=== PATIENT | female | born 1965 | race Caucasian/White ===

== ENCOUNTER 2016-10-27 11:55 | Emergency (ER) | payer BC ==
[2016-10-27 12:45] LABS: CHLORIDE,CL 102 mmol/L (101-111); SODIUM,NA 137 mmol/L (135-145)
--- NOTE | 2016-10-27 12:58 | EDM.PDOC ---
{null, ED HPI GENERAL MEDICAL PROBLEM - General Chief Complaint: Chest Pain Stated Complaint: [id number] CHEST PAIN Time Seen by Provider: 10/27/16 12:53 Source of Information: Reports: Patient History Limitations: Reports: No Limitations - History of Present Illness INITIAL COMMENTS - FREE TEXT/NARRATIVE: This 51 yo female patient reports to the ED with chest pain. The patient reports her chest pain started this morning at about 0715 and has been constant since that time. The patient reports she was reaching into the closet when her pain started. The patient reports her pain feels like a sharp shooting pain through to her left shoulder. The patient reports her pain increases with taking a deep breath. The patient has no history of similar symptoms. The patient reports she took Tylenol and ibuprofen this morning with some symptom relief. Onset: Today Onset Date: 10/27/16 Onset Time: 07:15 Duration: Constant, Improving Location: Reports: Chest (left side of chest into left shoulder) Quality: Reports: Ache, Sharp Severity: Moderate Improves with: Reports: Rest Worsens with: Reports: Movement Associated Symptoms: Reports: Chest Pain Treatments [employer]: Reports: Acetaminophen, NSAIDS - Related Data Allergies Allergy/AdvReac Type Severity Reaction Status Date / Time doxycycline Allergy Facial Verified 04/11/15 13:10 Swelling Sulfa (Sulfonamide Allergy Rash Verified 04/11/15 13:10 Antibiotics) Home Meds: Home Meds Ascorbic Acid [Vitamin C] 04/11/15 [History] Aspirin [Halfprin] 04/11/15 [History] Calcium Carb & Citrate/Vit D3 [Citracal + D ER] 04/11/15 [History] Glucosamine [Glucosamine Sulfate] 04/11/15 [History] Vitamin E 04/11/15 [History] Past Medical History Other Musculoskeletal History: Tested for MS about 3 years ago, with no diagnosis made. Other Neuro History: Question of MS a few years ago Social & Family History - Tobacco Use Smoking Status *Q: Never Smoker Second Hand Smoke Exposure: No - Alcohol Use Days Per Week of Alcohol Use: 0 - Recreational Drug Use Recreational Drug Use: No - Living Situation & Occupation Living situation: Reports: , with Spouse ED ROS GENERAL - Review of Systems Review Of Systems: ROS reveals no pertinent complaints other than HPI. ED EXAM, GENERAL - Physical Exam Exam: See Below Exam Limited By: No Limitations General Appearance: Alert, WD/WN, Moderate Distress Eye Exam: Bilateral Eye: EOMI, Normal Inspection, PERRL Ears: Normal External Exam, Normal Canal, Hearing Grossly Normal, Normal TMs Nose: Normal Inspection, Normal Mucosa, No Blood Throat/Mouth: Normal Inspection, Normal Lips, Normal Teeth, Normal Gums, Normal Oropharynx, Normal Voice, No Airway Compromise Head: Atraumatic Neck: Normal Inspection, Supple, Non-Tender, Full Range of Motion Respiratory/Chest: No Respiratory Distress, Lungs Clear, Normal Breath Sounds, No Accessory Muscle Use, Other (left chest wall tenderness) Cardiovascular: Normal Peripheral Pulses, Regular Rate, Rhythm, No Edema, No Gallop, No JVD, No Murmur, No Rub GI/Abdominal: Normal Bowel Sounds, Soft, Non-Tender, No Organomegaly, No Distention, No Abnormal Bruit, No Mass (Female) Exam: Deferred Rectal (Female) Exam: Deferred Back Exam: Normal Inspection, Full Range of Motion, NT Extremities: Normal Inspection, Normal Range of Motion, Non-Tender, Normal Capillary Refill, No Pedal Edema Neurological: Alert, Oriented, CN II-XII Intact, Normal Cognition, Normal Gait, Normal Reflexes, No Motor/Sensory Deficits Psychiatric: Normal Affect, Normal Mood Skin Exam: Warm, Dry, Intact, Normal Color, No Rash Lymphatic: No Adenopathy Course - Orders/Labs/Meds Orders: Active Orders 24 hr Category Date Time Status EKG Documentation Completion [RC] URGENT Care 10/27/16 12:08 Active Chest 1V Frontal [CR] Urgent Exams 10/27/16 12:08 Taken Labs: Laboratory Tests 10/27/16 10/27/16 Range/Units 12:15 12:15 WBC 5.8 (5.0-10.0) 10^3/uL RBC 4.77 (4.2-5.4) 10^6/uL Hgb 14.0 (12.0-16.0) g/dL Hct 42.4 (37.0-47.0) % MCV 88.9 (80-100) fL MCH 29.4 (27.0-34.0) pg MCHC 33.0 (33.0-35.0) g/dL Plt Count 319 (150-450) 10^3/uL Neut % (Auto) 56.2 (42.2-75.2) % Lymph % (Auto) 35.1 (20.5-50.1) % [place] % (Auto) 7.4 (2-8) % Eos % (Auto) 1.0 (1.0-3.0) % Baso % (Auto) 0.3 (0.0-1.0) % Sodium 137 (135-145) mmol/L Potassium 3.9 (3.6-5.0) mmol/L Chloride 102 (101-111) mmol/L Carbon Dioxide 28.0 (21.0-31.0) mmol/L Anion Gap 10.9 BUN 9 (7-18) mg/dL Creatinine 0.8 (0.6-1.3) mg/dL Est Cr Clr Drug Dosing TNP Estimated GFR (MDRD) > 60 BUN/Creatinine Ratio 11.25 Glucose 91 (74-105) mg/dL Calcium 9.3 (8.4-10.2) mg/dl Total Bilirubin 0.4 (0.2-1.0) mg/dL AST 21 (10-42) IU/L ALT 17 (10-60) IU/L Alkaline Phosphatase 66 (42-121) IU/L Troponin I < 0.02 (0.00-0.02) ng/ml Total Protein 7.8 (6.7-8.2) g/dl Albumin 4.7 (3.2-5.5) g/dl Globulin 3.1 Albumin/Globulin Ratio 1.52 Departure - Departure Time of Disposition: 12:58 Disposition: Home, Self-Care 01 Condition: fair Clinical Impression: Chest wall muscle strain Qualifiers: Encounter type: initial encounter Qualified Code(s): S29.011A - Strain of muscle and tendon of front wall of thorax, initial encounter Instructions: Nonspecific Chest Pain, [id number] Forms: ED Department Discharge Care Plan Goals: The patient was advised of the examination, lab, EKG and X-ray results during the visit. The patient was encouraged to continue to monitor her symptoms. The patient may take Tylenol or ibuprofen as directed for temporary symptom relief. If the patient has any additional symptoms or concerns, the patient should follow-up with her primary care facility or return to the emergency department. - My Orders Last 24 Hours: My Active Orders 10/27/16 12:08 EKG Documentation Completion [RC] URGENT Chest 1V Frontal [CR] Urgent - Assessment/Plan Last 24 Hours: My Active Orders 10/27/16 12:08 EKG Documentation Completion [RC] URGENT Chest 1V Frontal [CR] Urgent }
[2016-10-27 13:09] VITALS: BP 156/95
--- NOTE | 2016-11-02 09:04 | EKG ---
{null, 10/27/2016- KETAN LAMAR - A 12-lead EKG shows normal sinus rhythm. No significant ST elevation or ST depression noted on this 12-lead EKG. Nonspecific T-waves noted on lead V2, V3. [facility] /[id number] }
== END 2016-10-27 13:11 | disposition home or self-care (01) ==
LOC: DL.ED 11:55
DX: S29.011A Strain of muscle and tendon of front wall of thorax, initial encounter (principal); Z88.1 Allergy status to other antibiotic agents; Z88.2 Allergy status to sulfonamides; Z79.82 Long term (current) use of aspirin; Z79.899 Other long term (current) drug therapy; X58.XXXA Exposure to other specified factors, initial encounter
CPT/HCPCS: 36415; 71010; 80053; 84484; 85025; 93005; 99284

== ENCOUNTER 2018-01-20 13:17 | Emergency (ER) | payer BC ==
[2018-01-20 15:15] VITALS: BP 156/82
--- NOTE | 2018-02-10 11:14 | EDM.PDOC ---
Scribed by Chelsea Baker 01/22/18 1313 for Tacho Jimenes MD ED HPI GENERAL MEDICAL PROBLEM - General Chief Complaint: Upper Extremity Injury/Pain Stated Complaint: LEFT ARM Time Seen by Provider: 01/20/18 15:06 Source of Information: Reports: Patient, RN, RN Notes Reviewed History Limitations: Reports: No Limitations - History of Present Illness INITIAL COMMENTS - FREE TEXT/NARRATIVE: Pt with c/o arm injury. Pt not seen by me. Care of pt transferred to Dr. Jaimes due to arrival of multiple traumas to the ER. Onset: Unknown/Unsure Left Lower Arm Pain Score (Numeric/FACES): 6 - Related Data Allergies Allergy/AdvReac Type Severity Reaction Status Date / Time doxycycline Allergy Facial Verified 01/20/18 15:15 Swelling Sulfa (Sulfonamide Allergy Rash Verified 01/20/18 15:15 Antibiotics) Home Meds: Home Meds Calcium Carb & Citrate/Vit D3 [Citracal + D ER] 04/11/15 [History] Alendronate [Fosamax] 70 mg PO WEEKLY 01/20/18 [History] Past Medical History - Past Health History Medical/Surgical History: Denies Medical/Surgical History Other Musculoskeletal History: Tested for MS about 3 years ago, with no diagnosis made. Other Neuro History: Question of MS a few years ago Social & Family History - Caffeine Use Caffeine Use: Reports: Soda - Living Situation & Occupation Living situation: Reports: , with Spouse Review of Systems - Review of Systems Review Of Systems: Unable To Obtain ED EXAM, GENERAL - Physical Exam Exam: Not Obtained Course - Vital Signs Last Recorded V/S: Last Vital Signs Temp 36.6 C 01/20/18 15:09 Pulse 64 01/20/18 15:09 Resp 18 01/20/18 15:09 BP 156/82 H 01/20/18 15:09 Pulse Ox 99 01/20/18 15:09 - Radiology Interpretation Free Text/Narrative:: X-ray left forearm: Normal left forearm. See rad report. Departure - Departure Time of Disposition: 15:18 Disposition: Home, Self-Care 01 Condition: Good Clinical Impression: Left forearm pain, Tenosynovitis - Discharge Information Instructions: Tenosynovitis Referrals: PCP,None [Primary Care Provider] - Forms: ED Department Discharge Additional Instructions: See Dr. Jaimes's documentation for diagnosis and treatment plan. I have read and agree with the documentation that has been completed regarding this visit. By signing this record, I attest that the documentation was completed in my physical presence and is an accurate record of the encounter.
== END 2018-01-20 16:55 | disposition home or self-care (01) ==
LOC: DL.ED 13:17
DX: Z53.21 Procedure and treatment not carried out due to patient leaving prior to being seen by health care provider (principal)
CPT/HCPCS: 73090-LT; 99283

== ENCOUNTER 2021-02-27 15:21 | Emergency (ER) | payer BC ==
--- NOTE | 2021-02-27 15:42 | EDM.PDOC ---
ED HPI GENERAL MEDICAL PROBLEM - General Stated Complaint: CHEST PAIN Time Seen by Provider: 02/27/21 15:40 Source of Information: Reports: Patient, RN, RN Notes Reviewed History Limitations: Reports: No Limitations - History of Present Illness INITIAL COMMENTS - FREE TEXT/NARRATIVE: Ketan is a 56 y/o female who presents to the ED via personal vehicle with complaints of chest pain. The patient states her pain began approximately four days ago and has maintained in that time. She characterizes the pain as a dull ache in nature and notes it is localized to the midsternal chest. She denies any aggravating or alleviating factors. She denies recent illness, fever, shaking chills, vision changes, headache, cough, sore throat, nausea, vomiting, or abdominal pain. She has taken no medications for her symptoms. chest Pain Score (Numeric/FACES): 3 - Related Data Allergies Allergy/AdvReac Type Severity Reaction Status Date / Time doxycycline Allergy Facial Verified 02/27/21 15:50 Swelling Sulfa (Sulfonamide Allergy Rash Verified 02/27/21 15:50 Antibiotics) Home Meds: Home Meds Calcium Carb, Citrate/Vit D3 [Citracal + D ER] 1 tab PO DAILY 04/11/15 [History] Alendronate [Fosamax] 70 mg PO WEEKLY 01/20/18 [History] Past Medical History - Past Health History Medical/Surgical History: Denies Medical/Surgical History Musculoskeletal History: Reports: Osteoporosis Other Musculoskeletal History: Tested for MS about 3 years ago, with no diagnosis made. Other Neuro History: Question of MS a few years ago Social & Family History - Caffeine Use Caffeine Use: Reports: Soda - Living Situation & Occupation Living situation: Reports: , with Spouse ED ROS GENERAL - Review of Systems Review Of Systems: Comprehensive ROS is negative, except as noted in HPI. ED EXAM, GENERAL - Physical Exam Exam: See Below Exam Limited By: No Limitations General Appearance: Alert, No Apparent Distress, Thin Eye Exam: Bilateral Eye: EOMI, Normal Inspection, PERRL (3mm) Ears: Normal External Exam, Normal Canal, Hearing Grossly Normal, Normal TMs Ear Exam: Bilateral Ear: Auricle Normal, Canal Normal, TM normal Nose: Normal Inspection, Normal Mucosa Throat/Mouth: Normal Inspection, Normal Oropharynx, Normal Voice, No Airway Compromise Head: Atraumatic, Normocephalic Neck: Normal Inspection, Supple, Non-Tender, Full Range of Motion. No: Lymphadenopathy (L), Lymphadenopathy (R) Respiratory/Chest: No Respiratory Distress, Lungs Clear, Normal Breath Sounds, No Accessory Muscle Use, Chest Non-Tender. No: Crackles, Rales, Rhonchi, Wheezing, Stridor, Retractions Cardiovascular: Normal Peripheral Pulses, Regular Rate, Rhythm, No Edema, No Gallop, No JVD, No Murmur, No Rub Peripheral Pulses: 2+: Radial (L), Radial (R) GI/Abdominal: Normal Bowel Sounds, Soft, Non-Tender, No Distention, No Abnormal Bruit, No Mass, Pelvis Stable (Female) Exam: Deferred Rectal (Female) Exam: Deferred Back Exam: Normal Inspection, Full Range of Motion. No: CVA Tenderness (L), CVA Tenderness (R) Extremities: Normal Inspection, Normal Range of Motion, Non-Tender, No Pedal Edema, Normal Capillary Refill Neurological: Alert, Oriented, CN II-XII Intact, Normal Cognition, Normal Gait, No Motor/Sensory Deficits Psychiatric: Normal Affect, Normal Mood Skin Exam: Warm, Dry, Intact, Normal Color, No Rash. No: Cyanosis, Jaundice, Mottled, Pallor Lymphatic: No Adenopathy #1 Interpretation EKG Date: 02/27/21 Time: 15:43 Rhythm: NSR Rate (Beats/Min): 78 [place]: Normal P-Wave: Present QRS: Normal ST-T: Normal QT: Normal (.442) MA/PQ Interval: 0.177 Comparison: No Change EKG Interpretation Comments: NSR; No evidence of acute myocardial ischemia Course - Vital Signs Last Recorded V/S: Last Vital Signs Temp 98.6 F 02/27/21 15:46 Pulse 71 02/27/21 15:46 Resp 13 02/27/21 15:46 BP 143/93 H 02/27/21 15:46 Pulse Ox 99 02/27/21 15:46 - Orders/Labs/Meds Labs: Laboratory Tests 02/27/21 02/27/21 02/27/21 Range/Units 15:40 15:40 15:40 WBC 5.5 (5.0-10.0) 10^3/uL RBC 4.36 (4.2-5.4) 10^6/uL Hgb 12.6 (12.0-16.0) g/dL Hct 38.8 (37.0-47.0) % MCV 89.0 (80-100) fL MCH 28.9 (27.0-34.0) pg MCHC 32.5 L (33.0-35.0) g/dL Plt Count 339 (150-450) 10^3/uL Neut % (Auto) 50.6 (42.2-75.2) % Lymph % (Auto) 38.7 (20.5-50.1) % [place] % (Auto) 9.4 H (2-8) % Eos % (Auto) 0.9 L (1.0-3.0) % Baso % (Auto) 0.4 (0.0-1.0) % Sodium 142 (136-145) mmol/L Potassium 3.8 (3.5-5.1) mmol/L Chloride 103 (98-107) mmol/L Carbon Dioxide 27 (21-32) mmol/L Anion Gap 15.8 H (7-13) mEq/L BUN 13 (7-18) mg/dL Creatinine 0.79 (0.55-1.02) mg/dL Est Cr Clr Drug Dosing 65.78 mL/min Estimated GFR (MDRD) > 60 BUN/Creatinine Ratio 16.5 (No establ ref range) Glucose 86 (70-99) mg/dL Lactic Acid 0.5 (0.4-2.0) mmol/L Calcium 8.7 (8.5-10.1) mg/dL Total Bilirubin 0.3 (0.2-1.0) mg/dL AST 22 (15-37) U/L ALT 21 (14-59) U/L Alkaline Phosphatase 52 (46-116) U/L Troponin I High Sens 10 (<=51) pg/mL C-Reactive Protein < 0.2 (0.0-0.9) mg/dL B-Natriuretic Peptide 30 (0-100) pg/ml Total Protein 7.2 (6.4-8.2) g/dL Albumin 4.0 (3.4-5.0) g/dL Globulin 3.2 Albumin/Globulin Ratio 1.3 Meds: Medications Discontinued Medications Generic Name Dose Route Start Last Admin Trade Name Freq PRN Reason Stop Dose Admin Al Hydroxide/Mg Hydroxide 30 ml 02/27/21 16:24 02/27/21 16:35 Gi Cocktail Oral Solution 30 Ml PO 02/27/21 16:25 30 ml ONETIME ONE Administration Aspirin 324 mg 02/27/21 15:36 02/27/21 15:45 Aspirin 81 Mg Tab.Chew PO 02/27/21 15:37 324 mg ONETIME ONE Administration - Radiology Interpretation Free Text/Narrative:: [facility] Final Radiology Report Call: [phone] assistance Online chat: [email or web address] Name: KETAN LAMAR Age: 56Years F Date: 02/27/2021 SSN: -- : 1965 Study: CR CHEST 1V FRONTAL Requesting Physician: Elvi Brito Images: 1 Addl Studies: Provided Clinical History: Chest pain Contrast: Contrast Medium: Contrast Amount: Contrast Method: CONFIDENTIALITY STATEMENT This report is intended only for use by the referring physician, and only in accordance with law. If you received this in error, call [phone]. Page 1 of 1 PROCEDURE INFORMATION: Exam: XR Chest Exam date and time: 02/27/2021 4:09 PM Age: 56 years old Clinical indication: Other: Chest pain TECHNIQUE: Imaging protocol: XR of the chest. Views: 1 view. COMPARISON: CR Chest 1V Frontal 10/27/2016 12:29 PM FINDINGS: Lungs: Unremarkable. No consolidation. Pleural spaces: Unremarkable. No pleural effusion. No pneumothorax. Heart/Mediastinum: Unremarkable. No cardiomegaly. Bones/joints: Unremarkable. IMPRESSION: No acute findings. Thank you for allowing us to participate in the care of your patient. Dictated and Authenticated by: Nat Brower MD 02/27/2021 4:41 PM Central Time ([place] & [place]) - Re-Assessments/Exams Free Text/Narrative Re-Assessment/Exam: 02/27/21 ASA 325mg chewed with EKG and lab work drawn. GI cocktail administered following examination. Patient verbalized cessation of sternal pain following GI cocktail. Findings of examination, imaging, EKG, and lab work reviewed with patient. Will treat reflux with omeprazole. Supportive cares for reflux discussed. Patient instructed to follow up with her PCP regarding today's visit. Red flag signs and symptoms which would warrant reevaluation reviewed. Patient verbalized understanding and agreement with the plan of care. Departure - Departure Time of Disposition: 17:43 Disposition: Home, Self-Care 01 Condition: Fair Clinical Impression: Atypical chest pain Reflux esophagitis Qualifiers: Esophagitis bleeding: without hemorrhage Qualified Code(s): K21.00 - Gastro- esophageal reflux disease with esophagitis, without bleeding Instructions: Food Choices for Gastroesophageal Reflux Disease, Adult, Nonspecific Chest Pain, Adult Forms: ED Department Discharge Additional Instructions: Rx: omeprazole 1.) Should pain return, initiate omeprazole course. You may also take Maalox, TUMS, Pepcid, etc.. to help with breakthrough pain. 2.) Follow up with your primary care provider regarding today's visit. In 3-5 days should you not require omeprazole, or in 14 days should you start the course.
[2021-02-27] MEDS: Aspirin 81 MG Tab.Chew PO ONE (15:45)
[2021-02-27 15:50] VITALS: BP 143/93; PULSE 71
[2021-02-27 16:08] LABS: ANION GAP 15.8 mEq/L (7-13); CHLORIDE,CL 103 mmol/L (98-107); SODIUM,NA 142 mmol/L (136-145)
[2021-02-27] MEDS: GI Cocktail Oral Solution 30 ML PO ONE (16:35)
--- NOTE | 2021-02-27 16:42 | CR ---
PROCEDURE INFORMATION: Exam: XR Chest Exam date and time: 02/27/2021 4:09 PM Age: 56 years old Clinical indication: Other: Chest pain TECHNIQUE: Imaging protocol: XR of the chest. Views: 1 view. COMPARISON: CR Chest 1V Frontal 10/27/2016 12:29 PM FINDINGS: Lungs: Unremarkable. No consolidation. Pleural spaces: Unremarkable. No pleural effusion. No pneumothorax. Heart/Mediastinum: Unremarkable. No cardiomegaly. Bones/joints: Unremarkable. IMPRESSION: No acute findings.
== END 2021-02-27 17:52 | disposition home or self-care (01) ==
LOC: DL.ED 15:21
DX: R07.89 Other chest pain (principal); K21.00 Gastro-esophageal reflux disease with esophagitis, without bleeding; Z88.1 Allergy status to other antibiotic agents; Z88.2 Allergy status to sulfonamides
CPT/HCPCS: 36415; 71045; 80053; 83605; 83880; 84484; 85025; 86140; 93005; 99285; A9270

== ENCOUNTER 2022-12-20 17:37 | Emergency (ER) | payer BC ==
[2022-12-20 19:30] VITALS: BP 149/99; PULSE 97
[2022-12-20] MEDS ORDERED: Sodium Chloride 0.9% 10 ML Syringe FLUSH PRN (19:38)
[2022-12-20 19:54] LABS: BASOPHILS PERCENT AUTO 0.1 % (0.0-1.0); EOSINOPHILS PERCENT AUTO 0.2 % (1.0-3.0); HEMATOCRIT 43.3 % (37.0-47.0); HEMOGLOBIN 14.1 g/dL (12.0-16.0); LYMPHOCYTES PERCENT AUTO 12.2 % (20.5-50.1); MEAN CORPUSCULAR HEMOGLOBIN 29.1 pg (27.0-34.0); MEAN CORPUSCULAR HGB CONC 32.6 g/dL (33.0-35.0); MEAN CORPUSCULAR VOLUME 89.3 fL (80-100); MONOCYTES PERCENT AUTO 7.9 % (2-8); NEUTROPHILS PERCENT AUTO 79.6 % (42.2-75.2); PLATELET COUNT,PLT 335 10^3/uL (150-450); RED BLOOD CELL COUNT 4.85 10^6/uL (4.2-5.4); WHITE BLOOD CELL COUNT,WBC 11.4 10^3/uL (5.0-10.0)
[2022-12-20 20:02] LABS: APPEARANCE,URINE CLEAR (CLEAR); BILIRUBIN,URINE NEGATIVE (NEGATIVE); COLOR,URINE YELLOW (YELLOW); GLUCOSE,URINE NEGATIVE (NEGATIVE); KETONES,URINE 15 (NEGATIVE); LEUKOCYTE ESTERASE,URINE NEGATIVE (NEGATIVE); NITRITE,URINE NEGATIVE (NEGATIVE); OCCULT BLOOD,URINE TRACE-LYSED (NEGATIVE); PH,URINE 6.5 (5.0-9.0); PROTEIN,URINE NEGATIVE (NEGATIVE); UROBILINOGEN,URINE 0.2 mg/dL (0.2-1.0)
[2022-12-20 20:13] LABS: BACTERIA,URINE RARE /HPF (0-FEW/HPF); EPITHELIAL CELLS,URINE FEW /HPF (NOT SEEN); RBC,URINE 0-5 /HPF (0-5); WBC,URINE 0-5 /HPF (0-5/HPF)
[2022-12-20 20:15] LABS: A/G RATIO 1.1; ALBUMIN 4.3 g/dL (3.4-5.0); ANION GAP 15.6 mEq/L (7-13); BILIRUBIN TOTAL 0.3 mg/dL (0.2-1.0); BUN/CREATININE RATIO 14.9 (No establ ref range); CALCIUM 8.9 mg/dL (8.5-10.1); CREATININE 0.94 mg/dL (0.55-1.02); EST CRCL DRUG DOSING (CG) 54.62 mL/min; POTASSIUM,K 3.6 mmol/L (3.5-5.1); PROTEIN TOTAL,TP 8.2 g/dL (6.4-8.2)
[2022-12-20] MEDS: Iopamidol 612 MG/ML 100 ML Bottle IVPUSH ONE (20:47)
[2022-12-20] MEDS: metroNIDAZOLE/Normal Saline 500 MG in Premix Bag 1 BAG IV ONE (21:34)
[2022-12-20] MEDS: Ciprofloxacin in D5W 400 MG in Premix Bag 1 BAG IV ONE ×2 (22:36)
== END 2022-12-20 23:47 | disposition home or self-care (01) ==
LOC: DL.ED 17:37
DX: K57.32 Diverticulitis of large intestine without perforation or abscess without bleeding (principal); K21.9 Gastro-esophageal reflux disease without esophagitis; N18.9 Chronic kidney disease, unspecified; Z88.1 Allergy status to other antibiotic agents; Z88.2 Allergy status to sulfonamides; Z79.82 Long term (current) use of aspirin; Z79.899 Other long term (current) drug therapy
CPT/HCPCS: 36415; 74177; 80053; 81001; 85025; 96365; 96367; 99284-25; J0744; J3490; Q9967